=== PATIENT | female | born 1930 | race Caucasian/White ===

== ENCOUNTER 2018-05-13 09:59 | Inpatient (IN) | payer OTHER, BC ==
[~2018-05-13] VITALS: Ht 152.4 cm; Wt 33.8 kg
[2018-05-13 10:06] VITALS: Ht 152.4 cm; Wt 33.8 kg
[2018-05-13 11:14] LABS: BASOPHIL % 1.2 % (0-2); PLATELET COUNT 241 x10^3mcL (130-400); RED CELL DISTRIBUTION WIDTH 13.1 % (11.5-14.5)
[2018-05-13 11:27] LABS: ALBUMIN 3.5 g/dL (3.4-5.0); ALKALINE PHOSPHATASE 80 U/L (46-116); ALT/SGPT 19 U/L (14-59); AST/SGOT 20 U/L (15-37); BILIRUBIN TOTAL 0.49 mg/dL (0.20-1.00); CALCIUM 8.5 mg/dL (8.5-10.1); CARBON DIOXIDE 29.2 mmol/L (21-32); CHLORIDE SERUM 98 mmol/L (98-107); CREATININE SERUM 0.8 mg/dL (0.6-1.0); GLUCOSE SERUM 88 mg/dL (74-106); SODIUM SERUM 132 mmol/L (136-145); TOTAL PROTEIN, SERUM 6.4 g/dL (6.4-8.2)
[2018-05-13] MEDS ORDERED: METOPROLOL TART25 M1 PO (13:39)
[2018-05-13] MEDS ORDERED: OXYBUTYNIN CHLOR5 M2 PO (13:39)
[2018-05-13 14:45] VITALS: BP 121/72
[2018-05-13 18:14] VITALS: BP 135/62
[2018-05-13 20:23] LABS: microscopic required? NO
[2018-05-13 20:32] LABS: UA SPECIFIC GRAVITY 1.015 (1.005-1.035); urine erythrocyte NEGATIVE (NEGATIVE)
[2018-05-13 20:59] VITALS: BP 142/52
[2018-05-14 05:32] VITALS: BP 115/48
[2018-05-14 08:14] VITALS: BP 104/53
[2018-05-14 11:42] LABS: BASOPHIL % 1.2 % (0-2); PLATELET COUNT 221 x10^3mcL (130-400); RED CELL DISTRIBUTION WIDTH 13.3 % (11.5-14.5)
[2018-05-14 11:56] LABS: CALCIUM 8.3 mg/dL (8.5-10.1); CARBON DIOXIDE 19.7 mmol/L (21-32); CHLORIDE SERUM 98 mmol/L (98-107); CREATININE SERUM 0.7 mg/dL (0.6-1.0); POTASSIUM SERUM 3.8 mmol/L (3.5-5.1); SODIUM SERUM 132 mmol/L (136-145)
[2018-05-14 11:59] LABS: GLUCOSE SERUM 50 mg/dL (74-106)
[2018-05-14 17:20] VITALS: BP 119/63
[2018-05-14 19:58] VITALS: BP 121/52
[2018-05-15 05:38] VITALS: BP 147/66
[2018-05-15 05:43] LABS: BASOPHIL % 0.4 % (0-2); PLATELET COUNT 226 x10^3mcL (130-400); RED CELL DISTRIBUTION WIDTH 13.9 % (11.5-14.5)
[2018-05-15 06:04] LABS: CALCIUM 8.2 mg/dL (8.5-10.1); CARBON DIOXIDE 25.2 mmol/L (21-32); CHLORIDE SERUM 101 mmol/L (98-107); CREATININE SERUM 0.6 mg/dL (0.6-1.0); GLUCOSE SERUM 99 mg/dL (74-106); MAGNESIUM 1.8 mg/dL (1.8-2.4); PHOSPHOROUS 2.9 mg/dL (2.5-4.9); POTASSIUM SERUM 3.6 mmol/L (3.5-5.1); SODIUM SERUM 136 mmol/L (136-145)
[2018-05-15] MEDS ORDERED: LAC30L PO (09:36)
[2018-05-15 09:37] VITALS: BP 113/65
[2018-05-15 17:37] VITALS: BP 149/87
[2018-05-15 22:45] VITALS: BP 138/63
[2018-05-16 05:30] VITALS: BP 137/73
[2018-05-16 09:22] VITALS: BP 91/58
[2018-05-16 11:27] LABS: CALCIUM 7.3 mg/dL (8.5-10.1); CHLORIDE SERUM 101 mmol/L (98-107); CREATININE SERUM 0.3 mg/dL (0.6-1.0); GLUCOSE SERUM 118 mg/dL (74-106); POTASSIUM SERUM 3.1 mmol/L (3.5-5.1); SODIUM SERUM 135 mmol/L (136-145)
[2018-05-16 11:36] LABS: BASOPHIL % 0.5 % (0-2); PLATELET COUNT 203 x10^3mcL (130-400); RED CELL DISTRIBUTION WIDTH 13.8 % (11.5-14.5)
[2018-05-16] MEDS ORDERED: BOOST HIGH PRO237 ML PO (13:31)
[2018-05-16 13:35] VITALS: BP 91/58
[2018-05-16 13:38] VITALS: BP 102/58
[2018-05-16 18:17] VITALS: BP 98/54
[2018-05-16 21:05] VITALS: BP 102/55
[2018-05-17 05:42] VITALS: BP 136/75
[2018-05-17 09:10] VITALS: BP 103/47
[2018-05-17 09:38] VITALS: BP 103/47
[2018-05-17 13:52] LABS: BASOPHIL % 0.4 % (0-2); PLATELET COUNT 197 x10^3mcL (130-400); RED CELL DISTRIBUTION WIDTH 14.1 % (11.5-14.5)
[2018-05-17 14:01] LABS: CALCIUM 7.7 mg/dL (8.5-10.1); CARBON DIOXIDE 23.8 mmol/L (21-32); CHLORIDE SERUM 107 mmol/L (98-107); CREATININE SERUM 0.4 mg/dL (0.6-1.0); GLUCOSE SERUM 86 mg/dL (74-106); POTASSIUM SERUM 3.7 mmol/L (3.5-5.1); SODIUM SERUM 138 mmol/L (136-145)
== END 2018-05-17 16:52 | DRG 391 ==
LOC: ED 09:59 → MU 12:51
PROVIDERS: Emergency Medicine; Internal Medicine
DX: K59.00 Constipation, unspecified (principal); G93.41 Metabolic encephalopathy; R53.2 Functional quadriplegia; E87.1 Hypo-osmolality and hyponatremia; D68.69 Other thrombophilia; Z68.1 Body mass index [BMI] 19.9 or less, adult; R63.0 Anorexia; R63.3 Feeding difficulties; G30.9 Alzheimer's disease, unspecified; F02.80 Dementia in other diseases classified elsewhere, unspecified severity, without behavioral disturbance, psychotic disturbance, mood disturbance, and anxiety; I25.9 Chronic ischemic heart disease, unspecified; L89.152 Pressure ulcer of sacral region, stage 2
CPT/HCPCS: 83880; C9113; J1885; J3010; J3480; J3490; J7030; J7042; Q0092